=== PATIENT | male | born 1955 | race Asian ===

== ENCOUNTER 2021-03-23 10:37 | Emergency (ER) | payer MEDICARE, MEDICAID ==
[~2021-03-23] VITALS: Ht 172.7 cm; Wt 73.1 kg
--- NOTE | 2021-03-23 12:03 | NUR ---
ASSUMED CARE OF PT. PT ASKED TO WEAR GOWN, "IM JUST HERE TO HAVE A COVID TEST" EXPLAINED ITS SO OUR MD CAN DO A FULL EXAM. C/O DIARRHEA, NAUSEA, COUGHING, HEADACHES 2 DAYS AGO. DENIES CP/SOB. PT PLACED ON BP AND SPO2 MONITOR. MD BEDSIDE
[2021-03-23 12:22] VITALS: BP 151/86
--- NOTE | 2021-03-23 12:24 | NUR ---
Patient given discharge instructions and they have confirmed that they understand the instructions. Patient ambulatory with steady gait.
== END 2021-03-23 12:41 | disposition home or self-care (01) ==
LOC: ED 12:21
DX: J00 Acute nasopharyngitis [common cold] (principal); Z20.822 Contact with and (suspected) exposure to COVID-19
CPT/HCPCS: 99283; U0003; U0005